=== PATIENT | female | born 1975 | race Caucasian/White ===

== ENCOUNTER → 2017-10-17 | Outpatient (CLI) | payer BC ==
[~2017-10-17] MED LIST: ALPRAZOLAM; CYCLOBENZAPRINE; NORCO 5-325 TA1 EACH PO; ULTRAM
== END ==
LOC: M.RAD 10:08
DX: Z12.31 Encounter for screening mammogram for malignant neoplasm of breast (principal)

== ENCOUNTER 2018-11-10 16:40 | Emergency (ER) | payer BC ==
[~2018-11-10] VITALS: Ht 157.5 cm; Wt 79.4 kg
[~2018-11-10 16:40] MED LIST changes: -ALPRAZOLAM; +XANAX 0.5 MG0.5 MG PO
[2018-11-10 17:03] LABS: ABSOLUTE LYMPHOCYTES 1.1 thou/uL (0.8-5.3); ABSOLUTE MONOCYTES 0.7 thou/uL (0.0-1.2); ABSOLUTE NEUTROPHILS 12.1 thou/uL (1.6-8.1); BASOPHILS 0.3 %; EOSINOPHILS 0.3 %; HEMATOCRIT 43.4 % (37.0-47.0); LYMPHOCYTES 7.7 %; MCH 30.5 pg (26.0-34.0); MCHC 34.7 g/dL (28.0-37.0); MCV 88.1 fL (80.0-100.0); MONOCYTES 5.2 %; MPV 9.5 fl. (7.2-11.1); NUCLEATED RBCS 0 /100WBC; PLATELET COUNT* 247 thou/uL (150-400); POLYS 86.5 %; RBC 4.93 mil/uL (4.20-5.00); RDW-CV 12.3 % (10.5-14.5); WBC 14.1 thou/uL (4.0-11.0)
[2018-11-10 17:10] LABS: CALCIUM 8.4 mg/dL (8.5-10.1); CREATININE 0.8 mg/dL (0.6-1.3); POTASSIUM 3.6 mmol/L (3.5-5.1)
[2018-11-10 17:15] LABS: ALBUMIN 3.9 g/dL (3.4-5.0); TOTAL BILIRUBIN 0.5 mg/dL (<0.1-1.0); TOTAL PROTEIN 7.1 g/dL (6.4-8.2)
[2018-11-10 17:19] LABS: URINE BILIRUBIN NEGATIVE (Negative); URINE BLOOD NEGATIVE (Negative); URINE CLARITY CLEAR; URINE COLOR YELLOW; URINE GLUCOSE-RANDOM NEGATIVE (Negative); URINE KETONES NEGATIVE (Negative); URINE LEUKOCYTES-REFLEX NEGATIVE (Negative); URINE NITRITE-REFLEX NEGATIVE (Negative); URINE PROTEIN TRACE (Negative)
[2018-11-10] MEDS ORDERED: ZOFRAN ODT4 MG PO (18:45)
[2018-11-10 19:00] VITALS: BP 129/78
== END 2018-11-10 19:01 | disposition home or self-care (01) ==
LOC: M.ERS 16:40
PROVIDERS: Emergency Medicine
DX: K52.9 Noninfective gastroenteritis and colitis, unspecified (principal); M79.7 Fibromyalgia; F41.9 Anxiety disorder, unspecified